=== PATIENT | female | born 1940 | race Caucasian/White ===

== ENCOUNTER 2017-08-23 14:32 | Inpatient (IN) | payer OTHER ==
[~2017-08-23] VITALS: Ht 154.9 cm; Wt 72.2 kg
[2017-08-23 15:17] LABS: CALCIUM 9.1 mg/dL (8.5-10.1); CARBON DIOXIDE 29.5 mmol/L (21-32); CHLORIDE SERUM 98 mmol/L (98-107); GLUCOSE SERUM 114 mg/dL (74-106); POTASSIUM SERUM 3.6 mmol/L (3.5-5.1); SODIUM SERUM 136 mmol/L (136-145)
--- NOTE | 2017-08-23 15:17 | NUR ---
PT PRESENTS TO ED WITH C/O OF MIDSTERNAL NON-RADIATING CHEST PAIN XC 2 DAYS. PT REPORTS PAIN GETTING WORSE TODAY X 1.5 HOURS. PT RATES PAIN 8/10 AND PRESSURE IN QUALITY. PT DENIES N/V, DENIES SOB, DENIES ABD PAIN. PT REPORTS CARDIAC HX BUT STOPPED TAKING HER MEDS. PT ALSO C/O DIZZINESS AND WEAKNESS X 1.5 HOURS. PT HAS EQUAL DRAFTER PATENT UPON ASSESSMENT. DENIES DIZZINESS AT TIME OF ASSESSMENT.
[2017-08-23 15:20] LABS: BASOPHIL % 1.5 % (0-2); PLATELET COUNT 243 x10^3mcL (130-400); RED CELL DISTRIBUTION WIDTH 13.8 % (11.5-14.5)
--- NOTE | 2017-08-23 15:20 | NUR ---
DR YIP AT BEDSIDE FOR MSE.
[2017-08-23 15:22] LABS: ALBUMIN 3.9 g/dL (3.4-5.0); ALKALINE PHOSPHATASE 93 U/L (46-116); ALT/SGPT 19 U/L (14-59); AST/SGOT 19 U/L (15-37); BILIRUBIN TOTAL 0.3 mg/dL (0.20-1.00); TOTAL PROTEIN, SERUM 7.9 g/dL (6.4-8.2)
[2017-08-23] MEDS ORDERED: ASPIR 8181 MG PO (15:59)
[2017-08-23] MEDS ORDERED: METFORMIN HCL500 MG PO (16:00)
[2017-08-23] MEDS ORDERED: LISINOPRIL10 MG PO (16:01)
[2017-08-23] MEDS ORDERED: TOPROL XL25 MG PO (16:04)
[2017-08-23 17:04] LABS: MAGNESIUM 1.7 mg/dL (1.8-2.4); PHOSPHOROUS 3.7 mg/dL (2.5-4.9)
[2017-08-23 17:05] LABS: T3 TOTAL 0.73 ng/mL
[2017-08-23 17:06] LABS: CHOLESTEROL/HDL RATIO 2.4; FREE T4 1.31 ng/dL (0.76-1.46); FREE THYROXINE INDEX 3.4 ug/dL (1.4-4.5); T4(THYROXINE) 8.8 ug/dL (4.7-13.3)
--- NOTE | 2017-08-23 17:12 | NUR ---
REPORT GIVEN TO ELISABETH DIAZ TO ASSUME CARE OF PT POST TRANSFER TO TELE UNIT.
--- NOTE | 2017-08-23 17:30 | NUR ---
RECEIVED PT FROM ED VIA [facility]. CAME IN DUE TO CHEST PAIN. AAOX4. NO SOB NOTED. DENIES CHEST PAIN/PRESSURE AT THIS TIME, NSR ON THE MONITOR. DENIES ABDOMINAL DISCOMFORT. BOWEL SOUNDS ACTIVE. IV SITE PATENT AND INTACT. SIDE RAILS UPX2. CALL LIGHT ON REACH. PRIMARY NURSE ELISABETH AT BEDSIDE FOR CONTINUITY OF CARE.
[2017-08-23 17:44] VITALS: BP 165/71
[2017-08-23 17:49] VITALS: Ht 154.9 cm; Wt 72.2 kg
--- NOTE | 2017-08-23 18:30 | NUR ---
IV FLUIDS STARTED. BLOOD GLUCOSE: 139. PT DENIES PAIN. CALL LIGHT WITHIN REACH.
--- NOTE | 2017-08-23 20:00 | NUR ---
RECEIVED PT IN BED, ALERT AND ORIENTED. DENIES HEADACHE/DIZZINESS. RESP. EVEN AND UNLABORED. LUNGS SOUNDS CLEAR BILAT. ON ROOM AIR, NO DISTRESS NOTED.AFEBRILE AND VITAL SIGNS STABLE. SR ON THE MONITOR, DENIES CHEST PAIN OR ANY DISCOMFORT. IVF. NS AT 100ML/HR, INTACT AND INFUSING VIA LAC, SITE CLEAR.ART/RAKESH. ULTRASOUND DONE BY TECH. ASSISTED WITH HS CARE. CALL LIGHT WITHIN REACH. WILL CONTINUE TO MONITOR.
[2017-08-23 20:38] VITALS: BP 149/63
[2017-08-24] VITALS (8 sets, daily range): BP systolic 128–179; BP diastolic 54–79
--- NOTE | 2017-08-24 00:59 | NUR ---
EYES CLOSED, APPEARS ASLEEP. EASILY AROUSABLE .RESP. EVEN AND UNLABORED. NO DISTRESS NOTED. WILL CONTINUE TO MONITOR.
[2017-08-24 06:12] LABS: BASOPHIL % 0.6 % (0-2); PLATELET COUNT 220 x10^3mcL (130-400); RED CELL DISTRIBUTION WIDTH 13.1 % (11.5-14.5)
--- NOTE | 2017-08-24 06:19 | NUR ---
AFEBRILE AND VITAL SIGNS STABLE. SLEPT WELL DURING THE NIGHT. RESP. EVEN AND UNLABORED. NO DISTRESS NOTED. IVF INTACT AND INFUSING WELL, SITE CLEAR. VOIDING FREELY, URINE SPECIMEN OBTAINED ORDERED.DENIES CHEST PAIN OR ANY DISCOMFORT. WILL ENDORSE TO INCOMING NURSE.
[2017-08-24 06:38] LABS: CALCIUM 8.5 mg/dL (8.5-10.1); CARBON DIOXIDE 24.7 mmol/L (21-32); CHLORIDE SERUM 105 mmol/L (98-107); CREATININE SERUM 0.9 mg/dL (0.6-1.0); GLUCOSE SERUM 97 mg/dL (74-106); MAGNESIUM 1.8 mg/dL (1.8-2.4); PHOSPHOROUS 3.9 mg/dL (2.5-4.9); SODIUM SERUM 138 mmol/L (136-145)
[2017-08-24 07:19] LABS: microscopic required? YES; urine erythrocyte TRACE (NEGATIVE)
--- NOTE | 2017-08-24 07:30 | NUR ---
PATIENT AWAKE, ALERT, AND ORIENTED. NO PAIN. NO SIGN OF ACUTE DISTRESS. IV FLUIDS FLOWING. BED IN LOW POSITION. CALL LIGHT WITHIN REACH. FAMILY AT BEDSIDE. WILL CONTINUE TO MONITOR.
--- NOTE | 2017-08-24 12:00 | NUR ---
PATIENT LAYING IN BED. A/0X3. NO REPORT OF PAIN. DRESSING CDI. NO SIGN OF ACUTE DISTRESS. SPOUSE AT BEDSIDE. BED IN LOW POSITION. CALL LIGHT WITHIN REACH. IV FLUIDS FLOWING. WILL CONTINUE TO MONITOR.
--- NOTE | 2017-08-24 14:22 | NUR ---
BP 179/62, PT AWAKE ALERT AND ASYMPTOMATIC. GIVEN NITRO SL ORDERED PRN, SEE EMAR. ECHO IN PROGRESS. WILL CONTINUE TO MONITOR. FAMILY AT BEDSIDE.
--- NOTE | 2017-08-24 15:45 | NUR ---
DR LA AWARE OF ELEVATED BP, RECHECK 157/66. DR LA ORDERED ADDITIONAL DOSE OF LISINIPORIL, GIVEN ORDERED SEE EMAR. PT REMAINS ASYMPTOMATIC. FAMILY AT BEDSIDE. WILL CONTINUE TO MONITOR.
--- NOTE | 2017-08-24 15:54 | NUR ---
P.T. NOTES P.T. EVAL DONE; D/C FROM P.T. AFTER EVAL, NURSING TO AMBULATE PATIENT AD MCKENNA.
--- NOTE | 2017-08-24 18:53 | NUR ---
PATIENT LAYING IN BED. A/OX3. NO SIGN OF ACUTE DISTRESS. IV FLUIDS FLOWING. NO REPORT OF PAIN. FAMILY AT BEDSIDE. BED IN LOW POSITION. CALL LIGHT WITHIN REACH. WILL ENDORSE TO ONCOMING SHIFT.
--- NOTE | 2017-08-24 20:00 | NUR ---
RECEIVED PT IN BED, ALERT AND ORIENTED. DENIES HEADACHE/DIZZINESS.RESP. EVEN AND UNLABORED. LUNGS SOUNDS CLEAR BILAT. ON ROOM AIR, NO DISTRESS NOTED. SR WITH HR 62 ON THE MONITOR / DENIES CHEST PAIN OR ANY DISCOMFORT AT THIS TIME. IVF, NS AT 50ML/HR, INTACT AND INFUSING VIA LAC, SITE CLEAR. AMBULATORY. VOIDING FREELY. ASSISTED WITH HS CARE. CALL LIGHT WITHIN REACH. WILL CONTINUE TO MONITOR.
--- NOTE | 2017-08-24 23:59 | NUR ---
EYES CLOSED, APPEARS ASLEEP.RESP. EVEN AND UNLABORED. NO DISTRESS NOTED.WILL CONTINUE TO MONITOR.
[2017-08-25 05:28] VITALS: BP 117/60
--- NOTE | 2017-08-25 06:26 | NUR ---
AFEBRILE AND VITAL SIGNS STABLE. RESP. EVEN AND UNLABORED. NO DISTRESS NOTED. SR ON MONITOR, DENIES CHEST PAIN OR ANY DISCOMFORT AT THIS TIME. KEPT COMFORTABLE. SLEPT WELL. IVF INTACT AND INFUSING WELL, SITE CLEAR. B/P SHOWS 117/60. WILL ENDORSE TO INCOMING NURSE.
--- NOTE | 2017-08-25 09:00 | NUR ---
PT ON BED, AWAKE, ALERT, AND ORIENTED. HAS NO COMPLAINT OF PAIN, SOB, OR DIZZINESS. RESPONDS WELL TO QUESTION AND ANSWER. CLEAR MUSHTAQ LUNG FIELD, SYMMETRICAL CHEST EXPANSION AND UNLABORED. ACTIVE BOWEL SOUNDS NOTED. NON DISTENDED ABDOMEN. SIDE RAILS UP, CALL LIGHT WITHIN REACH, WILL CONTINUE TO MONITOR
[2017-08-25 09:18] VITALS: BP 154/65
--- NOTE | 2017-08-25 13:10 | NUR ---
MANUAL BP SHOWED 145/90. DR. MERCER
[2017-08-25 13:30] VITALS: BP 145/90
[2017-08-25] MEDS ORDERED: ZES20 PO (13:32)
[2017-08-25] MEDS ORDERED: TOP50 PO (13:32)
[2017-08-25 14:07] VITALS: BP 145/90
== END 2017-08-25 15:49 | disposition home or self-care (01) | DRG 205 ==
LOC: ED 14:32 → DU 15:46
PROVIDERS: Emergency Medicine; ADMIT Family Medicine Sports Medicine
DX: M94.0 Chondrocostal junction syndrome [Tietze] (principal); N17.0 Acute kidney failure with tubular necrosis; E11.51 Type 2 diabetes mellitus with diabetic peripheral angiopathy without gangrene; E11.65 Type 2 diabetes mellitus with hyperglycemia; I16.0 Hypertensive urgency; I25.2 Old myocardial infarction; E66.9 Obesity, unspecified; Z68.30 Body mass index [BMI] 30.0-30.9, adult; Z79.84 Long term (current) use of oral hypoglycemic drugs; Z79.82 Long term (current) use of aspirin
CPT/HCPCS: 82962; 83880; 84439; J7030; Q0092

== ENCOUNTER 2018-11-07 16:44 | Emergency (ER) | payer OTHER ==
[~2018-11-07] VITALS: Ht 160 cm; Wt 69.9 kg
[~2018-11-07 16:44] MED LIST: ASPIR 8181 MG PO; LISINOPRIL10 MG PO; METFORMIN HCL500 MG PO; TOP50 PO; TOPROL XL25 MG PO; ZES20 PO
[2018-11-07 17:04] VITALS: Ht 160 cm; Wt 69.9 kg
[2018-11-07 20:41] LABS: BASOPHIL % 0.8 % (0-2); PLATELET COUNT 246 x10^3mcL (130-400); RED CELL DISTRIBUTION WIDTH 13.7 % (11.5-14.5)
[2018-11-07 20:49] LABS: CALCIUM 8.6 mg/dL (8.5-10.1); CARBON DIOXIDE 29.2 mmol/L (21-32); CHLORIDE SERUM 94 mmol/L (98-107); CREATININE SERUM 0.8 mg/dL (0.6-1.0); GLUCOSE SERUM 89 mg/dL (74-106); SODIUM SERUM 129 mmol/L (136-145)
[2018-11-07 20:53] LABS: ALBUMIN 3.8 g/dL (3.4-5.0); ALKALINE PHOSPHATASE 73 U/L (46-116); ALT/SGPT 14 U/L (14-59); AST/SGOT 15 U/L (15-37); BILIRUBIN TOTAL 0.38 mg/dL (0.20-1.00); LIPASE 151 IU/L (73-393); TOTAL PROTEIN, SERUM 7.1 g/dL (6.4-8.2)
[2018-11-08 00:20] VITALS: BP 171/74
== END 2018-11-08 00:20 | disposition home or self-care (01) ==
LOC: ED 16:44
PROVIDERS: Emergency Medicine
DX: K29.70 Gastritis, unspecified, without bleeding (principal); K57.90 Diverticulosis of intestine, part unspecified, without perforation or abscess without bleeding; E87.1 Hypo-osmolality and hyponatremia; E11.9 Type 2 diabetes mellitus without complications; Z88.5 Allergy status to narcotic agent; Z88.8 Allergy status to other drugs, medicaments and biological substances
CPT/HCPCS: J7030; Q0092

== ENCOUNTER 2020-02-18 14:47 | Emergency (ER) | payer OTHER, MEDICAID ==
[~2020-02-18] VITALS: Ht 160 cm; Wt 65.8 kg
[2020-02-18 14:49] VITALS: Ht 160 cm; Wt 65.8 kg
[2020-02-18 15:31] LABS: BASOPHIL % 0.8 % (0-2); PLATELET COUNT 225 x10^3mcL (130-400); RED CELL DISTRIBUTION WIDTH 13.3 % (11.5-14.5)
[2020-02-18 15:39] LABS: CALCIUM 8.9 mg/dL (8.5-10.1); CHLORIDE SERUM 91 mmol/L (98-107); CREATININE SERUM 0.8 mg/dL (0.6-1.0); GLUCOSE SERUM 111 mg/dL (74-106); SODIUM SERUM 127 mmol/L (136-145)
[2020-02-18 15:51] LABS: ALBUMIN 4.1 g/dL (3.4-5.0); ALKALINE PHOSPHATASE 99 U/L (46-116); ALT/SGPT 13 U/L (14-59); AST/SGOT 18 U/L (15-37); BILIRUBIN TOTAL 0.46 mg/dL (0.20-1.00); CHOLESTEROL 193 mg/dL (<200); LIPASE 127 IU/L (73-393); MAGNESIUM 1.7 mg/dL (1.8-2.4); T4(THYROXINE) 9.3 ug/dL (4.7-13.3)
[2020-02-18 15:53] LABS: HDL CHOLESTEROL 92 mg/dL (40-60)
[2020-02-18 16:11] LABS: UA SPECIFIC GRAVITY <=1.005 (1.005-1.035); microscopic required? YES; urine erythrocyte 1+ (NEGATIVE)
[2020-02-18 16:23] LABS: AMPHETAMINE QUAL UR NONE DETECTED (See below)
[2020-02-18 16:32] VITALS: BP 162/69
== END 2020-02-18 17:32 | disposition left against medical advice (07) ==
LOC: ED 14:47
PROVIDERS: Emergency Medicine
DX: R51 Headache (principal); I10 Essential (primary) hypertension; E87.1 Hypo-osmolality and hyponatremia; E11.9 Type 2 diabetes mellitus without complications; E78.00 Pure hypercholesterolemia, unspecified; Z88.5 Allergy status to narcotic agent; Z88.8 Allergy status to other drugs, medicaments and biological substances
CPT/HCPCS: 36415; 82962; 83880; Q0092